=== PATIENT | male | born 1995 | race Two or more races ===

== ENCOUNTER 2020-05-14 10:22 | Emergency (ER) | payer OTHER ==
[2020-05-14] MEDS ORDERED: LIDOCAINE 1%/EPINEPHRINE INJ 20 ML VIAL INJ ONE (11:10)
--- NOTE | 2020-05-14 11:15 | ER Document Report ---
ED Wound - General Stated Complaint: LACERATION Time Seen by Provider: 05/14/20 11:04 Primary Care Provider: [facility] [Provider Group] - Follow up as needed [facility] [Provider Group] - Follow up as needed - HPI Notes: Patient is a 24-year-old male with no medical problems who presents with a laceration to his right knee. Patient states he dropped a knife on the floor and forgot it was there, when he kneeled into it. He reports pain to the area of the laceration but is able to ambulate without difficulty. He states his last tetanus shot was about 3 to 4 years ago. He denies any other injuries or complaints. Patient denies tobacco and alcohol use. - Related Data Allergies/Adverse Reactions: No Known Allergies Allergy (Verified 05/14/20 11:04) Past Medical History - General Information source: Patient - Social History Smoking Status: Unknown if Ever Smoked Frequency of alcohol use: None Drug Abuse: None Family History: Reviewed & Not Pertinent - Medical History Medical History: Negative Review of Systems - Review of Systems Constitutional: No symptoms reported EENT: No symptoms reported Cardiovascular: No symptoms reported Respiratory: No symptoms reported Gastrointestinal: No symptoms reported Genitourinary: No symptoms reported Male Genitourinary: No symptoms reported Musculoskeletal: See HPI Skin: No symptoms reported Hematologic/Lymphatic: No symptoms reported Neurological/Psychological: No symptoms reported Physical Exam - Vital signs Vitals: Temp Pulse Resp BP Pulse Ox 97.8 F 72 20 131/79 H 97 05/14/20 10:38 05/14/20 10:38 05/14/20 10:38 05/14/20 10:38 05/14/20 10:38 - Notes Notes: PHYSICAL EXAMINATION: GENERAL: Well-appearing, well-nourished and in no acute distress. HEAD: Atraumatic, normocephalic. EYES: sclera anicteric, conjunctiva are normal. ENT: Moist mucous membranes. NECK: Normal range of motion LUNGS: Normal work of breathing HEART: 2+ radial pulses bilaterally EXTREMITIES: 1cm laceration to the right inferior knee, lateral to the patellar tendon. Full ROM right knee. 2+ DP and PT pulses. No pitting or edema. No cyanosis. NEUROLOGICAL: No focal neurological deficits. Moves all extremities spontaneously and on command. PSYCH: Normal mood, normal affect. SKIN: Warm, Dry, normal turgor, no rashes or lesions noted. Course - Re-evaluation Re-evalutation: Patient is a 24-year-old male who presents with a right knee laceration that occurred just prior to arrival. Vital signs are stable and within normal limits. On exam, 1cm laceration to the right inferior knee, lateral to the patellar tendon. Due to location of the laceration there is no concern for joint involvement as it was superficial and well below the knee joint. Laceration repair performed without difficulties and patient tolerated well. Patient's tetanus is up-to-date. Patient prescribed Keflex as antibiotic prophylaxis. Return precautions and follow-up instructions given. Patient will be discharged home. Patient understands and is in agreement with the plan. - Vital Signs Vital signs: Temp Pulse Resp BP Pulse Ox 97.8 F 68 18 124/72 100 05/14/20 10:38 05/14/20 12:16 05/14/20 12:16 05/14/20 12:16 05/14/20 12:16 - Laboratory Results Critical Laboratory Results Reviewed: No Critical Results - Radiology Results Radiology Results Interpreted: Knee X-Ray 05/14/20 11:10 IMPRESSION: No acute osseous abnormality of the right knee. Critical Radiology Results Reviewed: No Critical Results Procedures - Laceration/Wound Repair Right Lateral Knee Wound length (cm): 1.5 Wound's Depth, Shape: Superficial, Linear Anesthetic type: 1% Lidocaine w/epi Wound explored: Clean Irrigated w/ Saline (mLs): 30 Wound Repaired With: Sutures Suture Size/Type: 4:0, Ethilon Number of Sutures: 5 Layer Closure?: No Notes: The wound is 1.5 cm to the right lateral knee. The wound was copiously irrigated with normal saline and surgical cleanser. The wound was explored for foreign bodies and none were found. The wound was prepped and draped in the normal sterile fashion. The wound was anesthetized using 1% lidocaine with epi. The edges were reapproximated using 4-0 Ethilon. Bleeding was well controlled and the patient tolerated the procedure well. Discharge - Discharge Clinical Impression: Laceration of right knee Qualifiers: Encounter type: initial encounter Qualified Code(s): S81.011A - Laceration without foreign body, right knee, initial encounter Condition: Stable Disposition: HOME, SELF-CARE Instructions: Cephalexin ([facility]), Laceration Care ([facility]), Prophylactic Antibiotic ([facility]) Additional Instructions: Follow up with urgent care or return in 7-10 days for suture removal. Prescriptions: Cephalexin Monohydrate [Keflex 500 mg Capsule] 500 mg PO QID 7 Days #28 capsule Referrals: [facility] [Provider Group] - Follow up as needed [facility] [Provider Group] - Follow up as needed
--- NOTE | 2020-05-14 11:48 | RADIOLOGY REPORT (SQ) ---
EXAM DESCRIPTION: KNEE RIGHT 4 VIEWS IMAGES COMPLETED DATE/TIME: 05/14/2020 11:34 am REASON FOR STUDY: right knee laceration COMPARISON: None. NUMBER OF VIEWS: Four views. TECHNIQUE: AP, lateral, and both oblique radiographic images acquired of the right knee. LIMITATIONS: None. FINDINGS: MINERALIZATION: Normal. BONES: No acute fracture or dislocation. JOINT: No effusion. SOFT TISSUES: No soft tissue swelling or radiopaque foreign body. The silhouettes of the quadriceps and patellar tendons are intact. OTHER: No other finding. IMPRESSION: No acute osseous abnormality of the right knee. TECHNICAL DOCUMENTATION: JOB ID: [id number] 2010 [employer]- All Rights Reserved Reading location - IP/workstation name: [email or web address]
[2020-05-14 12:17] VITALS: BP 124/72
== END 2020-05-14 12:17 | disposition home or self-care (01) ==
LOC: ER 10:22
DX: S81.011A Laceration without foreign body, right knee, initial encounter (principal); W26.0XXA Contact with knife, initial encounter
CPT/HCPCS: 99283; 73564; 12001; J3490